=== PATIENT | female | born 1985 | race Caucasian/White ===

== ENCOUNTER 2017-05-19 15:38 | Emergency (ER) | payer SELFPAY ==
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
[2017-05-19] MEDS ORDERED: ACETAMINOPHEN 325 MG TABLET PO ONE (16:10)
[2017-05-19 17:19] VITALS: BP 138/68
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
== END 2017-05-19 17:16 | disposition home or self-care (01) ==
LOC: ED 15:38
DX: R51 Headache (principal); V89.2XXA Person injured in unspecified motor-vehicle accident, traffic, initial encounter; Y93.9 Activity, unspecified; Y92.410 Unspecified street and highway as the place of occurrence of the external cause; Y99.9 Unspecified external cause status
CPT/HCPCS: 70450; 72125; 99283